=== PATIENT | female | born 1985 | race American Indian/Alaskan Native ===

== ENCOUNTER 2017-04-19 07:13 | Emergency (ER) | payer MEDICAID ==
[2017-04-19 08:05] VITALS: BP 118/84
--- NOTE | 2017-04-19 11:51 | Emergency Department Report ---
Abscess Boil HPI - HPI Chief Complaint: Urogenital-Female Stated Complaint: L BREAST MASS Time Seen by Provider: 04/19/17 11:16 Duration: >1 Week Location: Other (L BREAST) Severity: Moderate History: Yes Previous History (RECENTLY SAW OTHER MD), No Fever, No Pain, No Purulent Drainage, No Numbness, No Foreign Body, No Insect Bite HPI: Otherwise healthy 31-year-old -[place] female presents with left breast pain Allergies/Adverse Reactions: Allergies Allergy/AdvReac Type Severity Reaction Status Date / Time No Known Allergies Allergy Unverified 04/19/17 08:01 ED Review of Systems ROS: Stated complaint: CHEST PAIN W/ LUMP IN LEFT BREAST Other details as noted in HPI Comment: All other systems reviewed and negative Skin: other (L BREAST PAIN AND LUMP) ED Past Medical Hx - Past Medical History Previous Medical History?: Yes Additional medical history: Left breat lump X 1 M - Surgical History Past Surgical History?: Yes Hx Appendectomy: Yes - Social History Smoking Status: Never Smoker Substance Use Type: Prescribed ED Abscess Boil Physical Exam - Exam General: Vital signs noted. No distress. Alert and acting appropriately. Exam: Yes Normal Neurologic Exam, Yes Normal Circulation, No Tenderness, No Fluctuance, No Surrounding Cellulites/Erythema, No Lymphangitis, No Crepitation , No Heart Murmur Exam: Patient presents to the emergency room with a one-month history of a hard mass that she found on self breast exam of her left breast it would be the upper quadrant medially. She did go to [facility] with [place] where she had an ultrasound and mammogram. They told her that there was nothing there. On exam she clearly has a hard mass involving the medial upper and lower quadrant of the left breast. There is no nipple inversion eversion drainage or cellulitis consistent with mastoiditis or other infectious process. She is nontoxic and [id number] with no fever. She has no family history of breast cancer. ED Course Vital Signs 04/19/17 08:01 Temperature 98.3 F Pulse Rate 78 Respiratory 20 Rate Blood Pressure 118/84 O2 Sat by Pulse 99 Oximetry - Reevaluation(s) Reevaluation #1: 04/19/17 14:54 Ultrasound was completed here in the emergency room and the results were discussed with the general radiologist on-call for areas. They do not have a breast specialist available to read the study at the current time. It will be read overnight by that specialist per the areas tach. In discussing the ultrasound with the general radiologist he sees no fluid collection suggestive of an abscess and he recommends referral to a breast specialist for another mammogram and biopsy. No other insight obtained from the radiologist. Labs were noted. No leukocytosis. Calcium was noted to be 9. She was nontoxic non-ill appearing with no fever. Did have a long discussion with the patient about work and be causing this including infection breast cancer or polycystic calcified breast disease. She will follow up this week as instructed. Critical care attestation.: If time is entered above; I have spent that time in minutes in the direct care of this critically ill patient, excluding procedure time. ED Medical Decision Making - Lab Data Result diagrams: 04/19/17 12:40 04/19/17 12:40 - Radiology Data Radiology results: pending, image reviewed DISCUSSED WITH DR CHOUDHARY AT [facility] - Medical Decision Making Patient not only had an ultrasound and mammogram within the past couple weeks that he most landing but they had also had her on a 10 day course of clindamycin which she has finished. She states that she never had any redness or drainage or abscess blister looking skin lesion, even prior to the antibiotics After discussion with radiologist there is no abscess no overlying cellulitis so we will not place patient on antibiotics a second time. But she will be referred to the breast health specialist - Differential Diagnosis RO BREAST ABSCESS ED Disposition Clinical Impression: Breast pain, left, Breast mass in female Disposition: - TO HOME OR SELFCARE Is pt being admited?: No Does the pt Need Aspirin: No Condition: Stable Instructions: Breast Self-exam (ED), Mammogram (ED) Additional Instructions: Follow-up with breast health specialist as soon as possible for further testing. Left them know that she was seen at [facility] and here at [facility] so that they can obtain the test results. Referrals: PRIMARY CAREMD [Primary Care Provider] - 3-5 Days [facility] [Outside] - 3-5 Days ANAMARIA TEJEDA MD [Staff Physician] - 3-5 Days Time of Disposition: 14:49
[2017-04-19 12:58] LABS: Basophils % (Auto) 0.7 % (0.0-1.8); Eosinophils # (Auto) 0.1 K/mm3 (0.0-0.4); Eosinophils % (Auto) 1.4 % (0.0-4.3); Hemoglobin 11.9 gm/dl (10.1-14.3); Lymphocytes # (Auto) 1.4 K/mm3 (1.2-5.4); Lymphocytes % (Auto) 20.5 % (13.4-35.0); Mean Corpuscular HGB Conc 31 % (30-34); Mean Corpuscular Hemoglobin 24 pg (28-32); Mean Corpuscular Volume 78 fl (79-97); Monocytes # (Auto) 0.4 K/mm3 (0.0-0.8); Monocytes % (Auto) 6.3 % (0.0-7.3); Platelet Count 219 K/mm3 (140-440); Red Blood Count 4.89 M/mm3 (3.65-5.03); Red Cell Distribution Width 15.2 % (13.2-15.2)
[2017-04-19 13:17] LABS: Albumin 4.1 g/dL (3.9-5); BUN/Creatinine Ratio 16; Blood Urea Nitrogen 8 mg/dL (7-17); Hemolysis Index 111
[2017-04-19 13:18] LABS: Alanine Aminotransferase 12 units/L (7-56)
[2017-04-19 13:46] LABS: Bilirubin,Urine NEG (Negative); Blood,Urine NEG (Negative); Color,Urine Yellow (Yellow); Nitrite,Urine NEG (Negative); Protein,Urine <15 mg/dL mg/dL (Negative); Urobilinogen,Urine < 2.0 mg/dL (<2.0)
[2017-04-19 13:50] LABS: HCG Qualitative,Urine Negative (Negative)
--- NOTE | 2017-04-19 14:49 | Ultrasound Report ---
FINAL REPORT EXAM: US BREAST LT LIMITED HISTORY: large l breast mass COMPARISONS: None available. FINDINGS: Targeted left breast ultrasound In the medial half of the left breast extending between approximately the 7 o'clock and 11 o'clock axis 3-4 centimeters from the nipple there are several irregular heterogeneously hypoechoic masses with posterior shadowing and internal flow on color Doppler, the largest of which is in the 10 o'clock axis approximately 4 centimeters from the nipple measuring 3.9 x 1.5 x 0.7 cm. A narrow tubular component extends away from at least 1 of the masses. No extension to the skin is seen. No skin thickening is identified. IMPRESSION: Solid-appearing medial left breast masses measuring up to 3.9 x 1.5 x 0.7 cm, as detailed above. A thin tubular component extending from 1 of the masses raises the possibility of dilated ductal components containing debris and/or soft tissue. Regardless, correlation with mammogram and percutaneous sampling are recommended. BI-RADS assessment category 4: Suspicious. Dr. Kumar discussed findings with Shayy Omer NP at [address]6 [address] Time on 04/19/2017 immediately following the examination.
== END 2017-04-19 15:00 | disposition home or self-care (01) ==
LOC: ED 07:13
DX: N63.0 Unspecified lump in unspecified breast (principal); Z90.49 Acquired absence of other specified parts of digestive tract
CPT/HCPCS: 36415; 80053; 81001; 81025; 85025; 99284

== ENCOUNTER 2018-06-15 08:03 | Emergency (ER) | payer MEDICAID, OTHER ==
[2018-06-15 08:32] VITALS: BP 116/76
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
== END 2018-06-15 09:24 | disposition home or self-care (01) ==
LOC: ED 08:03
DX: S20.219A Contusion of unspecified front wall of thorax, initial encounter (principal); V49.49XA Driver injured in collision with other motor vehicles in traffic accident, initial encounter; Y93.89 Activity, other specified; Y92.488 Other paved roadways as the place of occurrence of the external cause; Y99.8 Other external cause status
CPT/HCPCS: 93005; 93010; 99282